=== PATIENT | female | born 1980 | race Caucasian/White ===

== ENCOUNTER 2023-11-18 19:19 | Emergency (ER) | payer OTHER ==
[2023-11-18 19:23] VITALS: BP 130/75; PULSE 68; RESP 17; TEMP 98; BMI 26.9
[2023-11-18] MEDS ORDERED: FAMOTIDINE 20 MG TABLET ONE (21:17)
[2023-11-18] MEDS ORDERED: diphenhydrAMINE HCL 25 MG CAPSULE (FP) PO ONE (21:17)
[2023-11-18] MEDS ORDERED: DEXAMETHASONE SOD PHOSPHATE 10 MG/1 ML VIAL ONE (21:18)
[2023-11-18] MEDS: FAMOTIDINE 20 MG TABLET PO ONE (21:23)
[2023-11-18] MEDS: diphenhydrAMINE HCL 25 MG CAPSULE (FP) PO ONE (21:23)
[2023-11-18] MEDS: DEXAMETHASONE SOD PHOSPHATE 10 MG/1 ML VIAL IM ONE (21:23)
== END 2023-11-18 21:39 | disposition home or self-care (01) ==
LOC: JERFT 19:19
PROC: 3E023GC Introduction of Other Therapeutic Substance into Muscle, Percutaneous Approach (ICD-10-PCS; principal; 2023-11-18)
DX: T78.40XA Allergy, unspecified, initial encounter (principal); L50.0 Allergic urticaria; L29.9 Pruritus, unspecified; R21 Rash and other nonspecific skin eruption
CPT/HCPCS: 99284-25; J1100

== ENCOUNTER 2024-10-30 17:15 | Emergency (ER) | payer OTHER ==
[2024-10-30 17:23] VITALS: BP 143/62; PULSE 59; RESP 18; TEMP 97.8; BMI 26.7
[2024-10-30] MEDS ORDERED: DIPHTH,PERTUSS(ACELL),TET 0.5 ML DISP.SYRIN IM ONE (18:54)
[2024-10-30] MEDS ORDERED: IBUPROFEN 600 MG TABLET (FP) PO ONE (18:57)
[2024-10-30] MEDS: DIPHTH,PERTUSS(ACELL),TET 0.5 ML DISP.SYRIN IM ONE (19:01)
[2024-10-30] MEDS ORDERED: BACITRACIN ZINC 15 GM TUBE TOPICAL OINTMENT ONE (19:02)
[2024-10-30] MEDS: BACITRACIN ZINC 15 GM TUBE TOPICAL OINTMENT TP ONE (19:03)
[2024-10-30] MEDS: IBUPROFEN 600 MG TABLET (FP) PO ONE (19:03)
== END 2024-10-30 19:08 | disposition home or self-care (01) ==
LOC: JERFT 17:15
PROC: 3E0234Z Introduction of Serum, Toxoid and Vaccine into Muscle, Percutaneous Approach (ICD-10-PCS; principal; 2024-10-30)
DX: S60.011A Contusion of right thumb without damage to nail, initial encounter (principal); Z23 Encounter for immunization; W23.2XXA Caught, crushed, jammed or pinched between a moving and stationary object, initial encounter
CPT/HCPCS: 73140-TC-RT-FY; 90471; 90715; 99284-25